=== PATIENT | female | born 1940 | race Caucasian/White ===

== ENCOUNTER 2017-01-18 10:23 | Day surgery (SDC) | payer MEDICARE, OTHER ==
[2017-01-18 11:05] LABS: BASOPHILS 0.6 % (0-2); EOSINOPHILS 3.9 % (0-7); HEMATOCRIT 46.1 % (36.0-48.0); HEMOGLOBIN 15.2 g/dL (12-16); IMMATURE GRANULOCYTES 0.3 % (0-5); LYMPHOCYTES 33.9 % (15-50); MCH 29.6 pg (26.0-34.0); MCV 89.9 fL (80.0-100.0); MEAN PLATELET VOLUME 11.3 fL (7.4-10.4); MONOCYTES 5.2 % (2-11); NEUTROPHILS 56.1 % (40-80); PLATELET COUNT 207 10x3/uL (130-400); RBC 5.13 10x6/uL (4.00-5.40); RDW 13.3 % (11.5-14.5); WBC 6.9 10x3/uL (4.8-10.8)
[2017-01-18] MEDS ORDERED: ZOCOR40 MG PO (11:28)
[2017-01-18] MEDS ORDERED: ALENDRONATE SOD70 MG PO (11:28)
[2017-01-18 11:34] VITALS: BP 134/63; BMI 25.5
[2017-01-18 11:58] LABS: ANION GAP 12.2 mmol/L (8-16); CALCIUM 9.2 mg/dL (8.5-10.1); CARBON DIOXIDE 26.8 mmol/L (21.0-32.0); CREATININE - SERUM 0.8 mg/dL (0.6-1.3)
[2017-01-18] MEDS ORDERED: MEPERIDINE HCL50 MG PO (16:32)
--- NOTE | 2017-01-18 18:33 | NUR ---
1830 DISCHARGE INSTRUCTIONS COMPLETE. PRESCRIPTION FOR DEMEROL GIVEN. PT HAS NO QUESTIONS OR CONCERNS AT THIS TIME. ESCORTED OUT BY MEL MESA.
--- NOTE | 2017-01-21 13:51 | OP ---
PATIENT NAME: JAMIE COLEY MEDICAL RECORD: [id number] :42 LOCATION:[facility] ADMISSION DATE: SURGEON: MIGUEL MIXON MD DATE OF OPERATION: 01/18/2017 PREOPERATIVE DIAGNOSIS: Medial meniscus tear of the left knee with large osteochondral defect of the left knee. PROCEDURES: 1. Arthroscopic partial medial meniscectomy. 2. Osteochondral allograft - Cartiform. SURGEON: Miguel Mixon MD ANESTHESIA: General. INTRAOPERATIVE COMPLICATIONS: None. SUMMARY OF PATHOLOGIC FINDINGS: The patient had a very large full thickness cartilage collagenous defect of the weightbearing aspect of the medial femoral condyle. This was replaced with a 2 cm Cartiform graft. OPERATIVE SUMMARY IN DETAIL: After obtaining the appropriate preoperative orthopedic surgery consent as well as anesthetic consultation, evaluation and clearance, the patient was brought to the operating room and placed on the operating table in supine position. After general laryngeal mask airway was administered, tourniquet was placed about the proximal aspect of left lower extremity. Left lower extremity was then prepped and draped in routine sterile fashion. Leg was elevated, exsanguinated and tourniquet was inflated to 350 mmHg. Routine arthroscopic lateral portal was created followed by superomedial portal and inferomedial portal. Diagnostic arthroscopy did reveal the above findings. The complex tear of the posterior horn of the medial meniscus was taken back to stable meniscal elements. 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 The very large area of chondral defect was noted. Serial and sequential PowerPICC was utilized to create bleeding bone bridges passed the tied meme. At this point, a paramedian arthrotomy was performed for direct visualization. The area was copiously dried up. It was covered somewhat with ACP. The Cartiform graft that had soaked for several minutes in ACP was then affixed using four 2.5 miniature SwiveLocks with Vicryl sutures. Having affixed the Cartiform graft, fibrin glue was then used for stabilization. At this point, the residual ACP was placed in the knee. The paramedian arthrotomy was closed with #1 Vicryl followed by 2-0 Vicryl followed by 4-0 Prolene in a running fashion. A 4-0 Prolene was also used to close the arthroscopic portals. Sterile dressings were applied. The tourniquet was deflated. The patient was awakened and taken to the recovery room in stable condition. All final needle and sponge counts were correct. TRANSINT:[id number] Voice Confirmation ID: [id number] DOCUMENT ID: [id number] OPERATIVE REPORT [id number] JAMIE COLEY MD, MIGUEL HUIZAR at 1351 CC: [id number] DICTATION DATE: 01/19/17 1025 WELDING ENGINEER: 01/19/17 1119 [facility] 01/18/17 [address] [id number] [place] [address]
== END 2017-01-18 18:30 | disposition home or self-care (01) ==
LOC: D.OPS 10:23 → D.PAN 12:15 → D.OPS 12:20
PROVIDERS: Anesthesiology
DX: S83.232A Complex tear of medial meniscus, current injury, left knee, initial encounter (principal); M21.852 Other specified acquired deformities of left thigh; Z01.812 Encounter for preprocedural laboratory examination